=== PATIENT | female | born 1960 | race African-American/Black ===

== ENCOUNTER 2016-11-17 16:32 | Emergency (ER) | payer MEDICARE, MEDICAID ==
[~2016-11-17] VITALS: Ht 162.6 cm; Wt 81.0 kg
[2016-11-17 18:45] VITALS: BP 130/85
[2016-11-17] MEDS ORDERED: KETOROLAC 60MG/2ML VIAL IM ONE (18:45)
[2016-11-17] MEDS ORDERED: HYDROCODONE/ACETAMINOPHEN 5/325MG TABLET PO ONE (18:45)
== END 2016-11-17 22:00 | disposition left against medical advice (07) ==
LOC: ER 20:32
DX: M25.552 Pain in left hip (principal); I10 Essential (primary) hypertension; F17.200 Nicotine dependence, unspecified, uncomplicated
CPT/HCPCS: 73502; 93971; 96372; 99284; J1885

== ENCOUNTER 2017-04-03 16:36 | Emergency (ER) | payer MEDICARE, MEDICAID ==
[~2017-04-03] VITALS: Ht 162.6 cm; Wt 68.0 kg
[2017-04-03] MEDS ORDERED: SODIUM CHLORIDE 0.9% 1,000 ML IV ONE ×2 (17:02→21:21)
[2017-04-03] MEDS ORDERED: ONDANSETRON HCL 4MG/2ML VIAL IV ONE (17:15)
[2017-04-03 17:33] LABS: BASOPHILS % 0.7 % (0.0-2.0); EOSINOPHILS % 0.4 % (0.0-5.0); HEMOGLOBIN. 8.8 g/dL (12.0-16.0); LYMPHOCYTES % 25.1 % (20.0-50.0); MEAN CORPUSCULAR HEMOGLOBIN 27.1 pg (28.0-32.0); MEAN CORPUSCULAR VOLUME 83.2 fL (81.0-99.0); MEAN PLATELET VOLUME 7.8 fl (7.4-10.4); MONOCYTES % 4.2 % (2.0-8.0); NEUTROPHILS % 69.6 % (40.0-76.0); PLATELET 227 x1000/uL (130-400); RED BLOOD CELL COUNT 3.25 mill/uL (4.2-5.4); RED CELL DISTRIBUTION WIDTH 15.8 % (11.6-14.6)
[2017-04-03 17:37] LABS: CHLORIDE 112 mEq/L (98-107)
[2017-04-03 17:40] LABS: INR 1.1; PARTIAL THROMBOPLASTIN TIME 20.8 sec (23.4-31.0); PROTHROMBIN TIME 10.9 sec (9.4-11.6)
[2017-04-03 17:41] LABS: CARBON DIOXIDE 21 mEq/L (21-32)
[2017-04-03 17:47] LABS: TROPONIN I 0.02 ng/mL (0.00-0.04)
[2017-04-03 23:00] VITALS: BP 128/78
== END 2017-04-03 23:03 | disposition home or self-care (01) ==
LOC: ER 16:50
DX: K92.2 Gastrointestinal hemorrhage, unspecified (principal); R19.7 Diarrhea, unspecified; D64.9 Anemia, unspecified; I10 Essential (primary) hypertension; F17.210 Nicotine dependence, cigarettes, uncomplicated
CPT/HCPCS: 36415; 71010; 80053; 83690; 84484; 85025; 85610; 85730; 93005; 96361; 96374; 99285; J2405; J7030

== ENCOUNTER 2017-07-18 17:58 | Emergency (ER) | payer MEDICARE, MEDICAID ==
[~2017-07-18] VITALS: Ht 170.2 cm; Wt 82.0 kg
[2017-07-18 18:03] VITALS: BP 152/69
== END 2017-07-19 | disposition left against medical advice (07) ==
LOC: ER 18:13
DX: Z53.21 Procedure and treatment not carried out due to patient leaving prior to being seen by health care provider (principal)